=== PATIENT | male | born 1985 | race Caucasian/White ===

== ENCOUNTER 2017-04-07 21:40 | Inpatient (IN) | payer SELFPAY ==
[~2017-04-07] VITALS: Ht 160 cm; Wt 62.1 kg
[~2017-04-07 21:40] MED LIST: FOLI1TAB19 PO; MULT-298 PO; OMEP40EC1 PO; PHEN100C3 PO; THIA100T25 PO
[2017-04-07 21:43] VITALS: BP 149/119
[2017-04-07] MEDS ORDERED: ETOMIDATE 20 MG/10 ML VIAL IVP ONE ×2 (21:50→22:05)
[2017-04-07] MEDS ORDERED: SUCCINYLCHOLINE CHLORIDE 200 MG/10 ML VIAL IVP ONE ×2 (22:03→22:05)
[2017-04-07] MEDS ORDERED: PROPOFOL 200 MG/20 ML VIAL IV ONE (22:05)
[2017-04-07] MEDS ORDERED: PROPOFOL 1000 MG/100 ML PREMIX 100 ML IV ONE ×2 (22:14→23:10)
[2017-04-07 22:30] VITALS: BP 125/96
[2017-04-07 22:30] LABS: HEMATOCRIT 46.5 % (36-52); HEMOGLOBIN 15.6 g/dL (12.0-18.0); MEAN CORPUSCULAR HEMOGLOBIN 33 pg (27-31); MEAN CORPUSCULAR HGB CONC 34 g/dL (33-37); MEAN CORPUSCULAR VOLUME 98 fL (80-94); PLATELET COUNT (AUTO) 409 K/uL (140-450); RED BLOOD CELL COUNT(AUTO) 4.78 MIL/uL (4.20-6.10); RED CELL DISTRIBUTION WIDTH 12.5 % (11.6-13.7); WHITE BLOOD COUNT (AUTO) 5.5 K/uL (4.8-10.8)
[2017-04-07] MEDS ORDERED: ONDANSETRON 4 MG/2 ML VIAL IVP ONE (22:35)
[2017-04-07 22:41] LABS: ANION GAP 18.9 (8-16); CHLORIDE 105 mmol/L (98-107); CREATININE 0.9 mg/dL (0.7-1.3); GFR ARICAN-AMERICAN 127 mL/min (>90); GLUCOSE 137 mg/dL (74-106); POTASSIUM 3.9 mmol/L (3.5-5.1); SODIUM SERUM 144 mmol/L (136-145); UREA NITROGEN, BLOOD 6 mg/dL (7-18)
[2017-04-07] MEDS ORDERED: ONDANSETRON 4 MG/2 ML VIAL ONE (22:41)
[2017-04-07 22:47] LABS: BARBITURATE, URINE NEG. ng/ml (NEG <=200); BENZODIAZEPINE, URINE NEG. ng/mL (NEG <=200); CANNABINOID, URINE NEG. ng/mL (NEG <=50); COCAINE, URINE NEG. ng/mL (NEG <=300); OPIATE, URINE NEG. ng/mL (NEG <=2000); PHENCYCLIDINE SCREEN,URINE NEG. ng/mL (NEG <=25)
[2017-04-07 22:48] LABS: ALBUMIN 4.1 g/dL (3.4-5.0); ASPARTATE AMINOTRANSFERASE 63 U/L (15-37); TOTAL BILIRUBIN 0.3 mg/dL (0.0-1.0)
[2017-04-07 22:49] LABS: EOSINOPHILS % (MANUAL) 2 % (0-4); LYMPHOCYTES % (MANUAL) 62 % (20-46); MONOCYTES % (MANUAL) 1 % (5-12)
[2017-04-07 22:50] LABS: ACETAMINOPHEN < 0.5 ug/ml (10-30); SALICYLATE < 2.8 mg/dL (2.8-20.0)
[2017-04-07] MEDS ORDERED: LORazepam 2 MG/ML VIAL IVP ONE (22:55)
[2017-04-08] MEDS ORDERED: LORazepam 2 MG/ML VIAL IVP ONE (00:05)
[2017-04-08] MEDS ORDERED: NACL 0.9% 1,000 ML IV SCH (00:11)
[2017-04-08] MEDS ORDERED: ONDANSETRON 4 MG/2 ML VIAL IM/IVP PRN (00:15)
[2017-04-08] MEDS ORDERED: HYDROcodone/APAP 7.5/325 MG 1 TAB PO PRN (00:15)
[2017-04-08] MEDS ORDERED: DOCUSATE SODIUM 100 MG GELCAP PO PRN (00:15)
[2017-04-08] MEDS ORDERED: MORPHINE SULFATE 2 MG/ML SYR IVP PRN (00:15)
[2017-04-08] MEDS ORDERED: ACETAMINOPHEN 325 MG TAB PO PRN (00:15)
[2017-04-08 00:34] LABS: PROTHROMBIN TIME 9.9 secs (10.8-13.4)
[2017-04-08] MEDS ORDERED: FOLIC ACID 5 MG/ML SYR IM SCH (00:40)
[2017-04-08] MEDS ORDERED: LORazepam 1 MG TAB PO PRN ×2 (00:40→01:35)
[2017-04-08] MEDS ORDERED: THIAMINE 200 MG/2 ML VIAL IM SCH (00:40)
[2017-04-08 00:45] LABS: CHOL/HDL RATIO 3.5 (1-4.5); FREE T4 (FREE THYROXINE) 0.95 ng/dL (0.76-1.46); PHOSPHORUS 4.4 mg/dL (2.5-4.9); THYROID STIMULATING HORMONE 2.68 uIU/mL (0.34-3.74)
[2017-04-08] MEDS ORDERED: LORazepam 2 MG/ML VIAL IVP PRN (01:20)
[2017-04-08 01:41] VITALS: BP 115/88
[2017-04-08 02:00] VITALS: BP 105/62
[2017-04-08 04:00] VITALS: BP 104/65
[2017-04-08] MEDS ORDERED: LORazepam 2 MG/ML VIAL IVP SCH ×2 (05:00)
[2017-04-08 06:00] VITALS: BP 150/96
[2017-04-10 08:48] LABS: T4 (THYROXINE) 7.4 ug/dL (4.5 - 12.0)
== END 2017-04-08 07:10 | disposition left against medical advice (07) | DRG 894 ==
LOC: MED 21:40 → MIC 04-08 00:17
PROVIDERS: ADMIT Family Medicine; ATTEND Family Medicine
PROC: 0BH17EZ Insertion of Endotracheal Airway into Trachea, Via Natural or Artificial Opening (ICD-10-PCS; principal; 2017-04-08)
PROC: 5A1935Z Respiratory Ventilation, Less than 24 Consecutive Hours (ICD-10-PCS; 2017-04-08)
DX: F10.129 Alcohol abuse with intoxication, unspecified (principal); G92 Toxic encephalopathy; R56.9 Unspecified convulsions; R74.0 Nonspecific elevation of levels of transaminase and lactic acid dehydrogenase [LDH]; Y90.9 Presence of alcohol in blood, level not specified; E78.2 Mixed hyperlipidemia; Z53.21 Procedure and treatment not carried out due to patient leaving prior to being seen by health care provider
CPT/HCPCS: 31500; 36415; 36600; 51702; 70450; 71010; 80053; 80305; 82803; 83036; 83735; 84100; 84436; 84439; 84443; 84479; 85025; 85610; 85730; 87081; 93005; 94002; 96374; 96375; 99291; G0480; G0482; J0330; J2060; J2405; J2704; J3411; J3490; J7030; Q0092